=== PATIENT | male | born 1995 | race Caucasian/White ===

== ENCOUNTER 2019-05-28 19:59 | Emergency (ER) | payer OTHER ==
[~2019-05-28] VITALS: Ht 180.3 cm; Wt 117.9 kg
[2019-05-28 20:05] VITALS: BP 132/62
--- NOTE | 2019-05-28 20:05 | NUR ---
TO BED #03 AMBULATORY
[2019-05-28] MEDS ORDERED: IBUPROFEN 800 MG TAB PO ONE (20:10)
--- NOTE | 2019-05-28 20:17 | NUR ---
23 Y/O M PRESENTED TO ED WITH C/O FEVER X1 DAY. PER PT "TOOK MY TEMPERATURE AT HOME AND IT WAS 99.1." FEVER ACCOMPANIED BY NASAL CONGESTION, BILATERAL EAR PAIN, SORE THROAT. 8/10 PAIN. EDEMA NOTED TO TONSILS. PT SELF-MEDICATED WITH TYLENOL AT 1500. PT SKIN IS HOT TO TOUCH. NO REDNESS NOTED TO BILATERAL EARS. TYMPANIC MEMBRANE INTACT. EARWAX NOTED. ERMD NOTIFIED. WILL CONTINUE TO MONITOR.
[2019-05-28] MEDS ORDERED: KETOROLAC 60 MG/2 ML VIAL IM ONE (20:45)
[2019-05-28] MEDS ORDERED: AMOXICILLIN 500 MG CAP PO ONE (20:45)
--- NOTE | 2019-05-28 21:15 | NUR ---
Patient discharged with v/s stable. Written and verbal after care instructions given and explained. Patient alert, oriented and verbalized understanding of instructions. Ambulatory with steady gait. All questions addressed prior to discharge. ID band removed. Patient advised to follow up with PMD. Rx of amoxcillin and motrin given. Patient educated on indication of medication including possible reaction and side effects. Opportunity to ask questions provided and answered.
[2019-05-28 21:16] VITALS: BP 132/62
== END 2019-05-28 21:15 | disposition home or self-care (01) ==
LOC: MED 19:59
DX: J02.8 Acute pharyngitis due to other specified organisms (principal); B96.89 Other specified bacterial agents as the cause of diseases classified elsewhere
CPT/HCPCS: 96372; 99283; J1885

== ENCOUNTER 2021-07-18 17:45 | Emergency (ER) | payer SELFPAY ==
[~2021-07-18] VITALS: Ht 180.3 cm; Wt 120.2 kg
[2021-07-18 18:20] VITALS: BP 111/74
--- NOTE | 2021-07-18 18:22 | NUR ---
PT TO AWAIT IN TENT
[2021-07-18] MEDS ORDERED: NAPR-54 PO (19:05)
[2021-07-18] MEDS ORDERED: METH-1681 PO (19:05)
[2021-07-18 19:13] VITALS: BP 111/74
--- NOTE | 2021-07-18 19:13 | NUR ---
Patient discharged with v/s stable. Written and verbal after care instructions given and explained. Patient alert, oriented and verbalized understanding of instructions. Ambulatory with steady gait. All questions addressed prior to discharge. ID band removed. Patient advised to follow up with PMD. Rx of METHOCARBAMOL AND NAPROXEN given. Patient educated on indication of medication including possible reaction and side effects. Opportunity to ask questions provided and answered.
--- NOTE | 2021-07-18 19:13 | NUR ---
NO NURSING INTERVENTIONS IMPLEMENTED
== END 2021-07-18 19:13 | disposition home or self-care (01) ==
LOC: MED 17:45
DX: S16.1XXA Strain of muscle, fascia and tendon at neck level, initial encounter (principal); R51.9 Headache, unspecified; X58.XXXA Exposure to other specified factors, initial encounter; Y93.89 Activity, other specified; Y92.89 Other specified places as the place of occurrence of the external cause; Y99.8 Other external cause status
CPT/HCPCS: 99283

== ENCOUNTER 2021-11-17 14:13 | Emergency (ER) | payer MEDICAID ==
[~2021-11-17] VITALS: Ht 177.8 cm; Wt 127.5 kg
[~2021-11-17 14:13] MED LIST: METH-1681 PO; NAPR-54 PO
[2021-11-17 15:04] VITALS: BP 157/105
[2021-11-17] MEDS ORDERED: KETOROLAC 30 MG/ML VIAL IM ONE (16:00)
[2021-11-17] MEDS ORDERED: NAPR-54 PO (16:36)
[2021-11-17] MEDS ORDERED: KETOROLAC 30 MG/ML VIAL ONE (17:17)
--- NOTE | 2021-11-17 17:17 | NUR ---
PER ERPA PT LEFT ANKLE WAS WILLIAM WRAPPED AND PT WAS GIVEN CRUTCHES IN ADDITION PT WAS TAUGHT HOW TO USE CRUTHCHES.
--- NOTE | 2021-11-17 17:27 | NUR ---
26 y/o male bib mother c/o left ankle pain that started yesterday during football. upon assessment, left ankle has swelling and some redness, states he is having numbness of the toes. pt states prior to arrival he took tylenol and iced area. denies loc, syncope or head/neck injury. denies n/v/d. skin is pink/warm/dry; aaox4 unable to ambulate at this time; lungs clear bl; hr even and regular; pt denies any fever, cp, sob, or cough at this time; patient states pain of 9/10 at this time; vss; ermd made aware of pt status. pmh: denies nka med: tylenol 3 hours prior to arrival, no relief
--- NOTE | 2021-11-17 17:27 | NUR ---
Patient discharged with v/s stable. Written and verbal after care instructions given and explained. Patient alert, oriented and verbalized understanding of instructions. Ambulatory with to car. All questions addressed prior to discharge. ID band removed. Patient advised to follow up with PMD. Rx of naproxen (sent) given. Patient educated on indication of medication including possible reaction and side effects. Opportunity to ask questions provided and answered.
[2021-11-17 17:28] VITALS: BP 157/105
== END 2021-11-17 17:27 | disposition home or self-care (01) ==
LOC: MED 14:13
DX: S93.402A Sprain of unspecified ligament of left ankle, initial encounter (principal); Z79.899 Other long term (current) drug therapy; X50.1XXA Overexertion from prolonged static or awkward postures, initial encounter; Y93.89 Activity, other specified; Y92.830 Public park as the place of occurrence of the external cause; Y99.8 Other external cause status
CPT/HCPCS: 73610; 73630; 96372; 99284; J1885

== ENCOUNTER 2024-02-23 11:41 | Emergency (ER) | payer SELFPAY ==
[~2024-02-23] VITALS: Ht 180.3 cm; Wt 126.1 kg
[2024-02-23 11:50] VITALS: BP 132/67; PULSE 86; RESP 18; TEMP 98.3; O2SAT 99
[2024-02-23] MEDS ORDERED: IBUP-2213 PO (12:17)
[2024-02-23] MEDS ORDERED: BENZ-300 PO (12:17)
[2024-02-23] MEDS ORDERED: SUD30 PO (12:17)
[2024-02-23] MEDS ORDERED: BPM/480S48 PO (12:17)
[2024-02-23 14:15] LABS: FLU A ANTIGEN negative (NEGATIVE); FLU B ANTIGEN negative (NEGATIVE)
== END 2024-02-23 12:29 | disposition home or self-care (01) ==
LOC: MED 11:41
DX: J06.9 Acute upper respiratory infection, unspecified (principal); Z20.822 Contact with and (suspected) exposure to COVID-19; Z79.899 Other long term (current) drug therapy
CPT/HCPCS: 99283

== ENCOUNTER 2024-04-03 20:32 | Emergency (ER) | payer SELFPAY ==
[~2024-04-03] VITALS: Ht 177.8 cm; Wt 122.9 kg
[~2024-04-03 20:32] MED LIST changes: +BENZ-300 PO; +BPM/480S48 PO; +IBUP-2213 PO; +NAPR-337 PO; -NAPR-54 PO; +SUD30 PO
[2024-04-03 20:56] VITALS: BP 130/75; PULSE 86; RESP 16; TEMP 98.8; O2SAT 97
[2024-04-03] MEDS ORDERED: IBUP-2213 PO (23:24)
== END 2024-04-03 23:32 | disposition home or self-care (01) ==
LOC: MED 20:32
DX: S93.491A Sprain of other ligament of right ankle, initial encounter (principal); Z79.899 Other long term (current) drug therapy; X50.1XXA Overexertion from prolonged static or awkward postures, initial encounter; Y93.89 Activity, other specified; Y92.89 Other specified places as the place of occurrence of the external cause; Y99.8 Other external cause status
CPT/HCPCS: 73610; 99283